=== PATIENT | male | born 1970 | race Asian ===

== ENCOUNTER 2017-02-13 20:58 | Emergency (ER) | payer OTHER ==
[~2017-02-13] VITALS: Ht 167.6 cm; Wt 76.0 kg
[2017-02-13 21:52] VITALS: BP 150/88
== END 2017-02-13 22:04 | disposition home or self-care (01) ==
LOC: ED 21:30
DX: I10 Essential (primary) hypertension (principal)
CPT/HCPCS: 93005; 99283